=== PATIENT | male | born 1990 | race Caucasian/White ===

== ENCOUNTER 2019-04-23 13:29 | Emergency (ER) | payer MEDICAID ==
[~2019-04-23] VITALS: Ht 180.3 cm; Wt 136.1 kg
[2019-04-23 13:38] VITALS: BP_SYST 128
--- NOTE | 2019-04-23 13:44 | NUR ---
Patient triaged and placed in waiting room. VSS and patient appears in no acute distress at this time. Accompanied by friend, awaiting available bed, and MD notified of need for MSE.
--- NOTE | 2019-04-23 15:15 | NUR ---
Pt to [facility]. MSE completed by myself.
--- NOTE | 2019-04-23 15:20 | NUR ---
PT CAME TO ER AFTER KICKING DOG YESTERDAY. C/O R FT PAIN, NO SWELLING, PT RESTING, CALM AND COOPERATIVE.
[2019-04-23 16:15] VITALS: BP_SYST 128
--- NOTE | 2019-04-23 16:15 | NUR ---
Patient given written and verbal discharge instructions and verbalizes understanding. ER MD discussed with patient the results and treatment provided. Patient in stable condition. ID arm band removed. Rx of MOTRIN given. Patient educated on pain management and to follow up with PMD. Pain Scale 0. Opportunity for questions provided and answered. Medication side effect fact sheet provided.
== END 2019-04-23 16:15 | disposition home or self-care (01) ==
LOC: SED 13:29
DX: S90.31XA Contusion of right foot, initial encounter (principal); R03.0 Elevated blood-pressure reading, without diagnosis of hypertension; W22.8XXA Striking against or struck by other objects, initial encounter; Y93.89 Activity, other specified; Y92.89 Other specified places as the place of occurrence of the external cause; Y99.8 Other external cause status
CPT/HCPCS: 99283